=== PATIENT | female | born 1945 | race Caucasian/White ===

== ENCOUNTER 2017-03-25 14:46 | Emergency (ER) | payer MEDICARE ==
[2017-03-25] MEDS ORDERED: Sodium Chloride 0.9% 10 ML Syringe FLUSH PRN (15:12)
[2017-03-25] MEDS ORDERED: Metoprolol Tartrate 50 MG Tab PO ONE (15:13)
--- NOTE | 2017-03-25 15:18 | EDM.PDOC ---
ED HPI GENERAL MEDICAL PROBLEM - General Chief Complaint: Cardiovascular Problem Stated Complaint: CHEST DISCOMFORT/FLUTTERS Time Seen by Provider: 03/25/17 15:05 Source of Information: Reports: Patient, Family History Limitations: Reports: Other (no old records) - History of Present Illness INITIAL COMMENTS - FREE TEXT/NARRATIVE: 71 yo female weekender from [facility] with no significant pHx presents with her internal medicine doctor for evaluation of heart fluttering that began yesterday. She is not aware of this in the past. At home per her the rhythm seemed irregularly irregular. No chest pain, SOB, or nausea. Last BP check about a yr ago and was normal then. No recent med additions or subtractions. Her father had an [place] and a CVA in his early 60's. Took an aspirin tablet at home today. Onset Date: 03/24/17 Duration: Hour(s):, Intermittent, Waxing/Waning Location: Reports: Chest Quality: Reports: Other (no pain) Severity: Moderate Improves with: Reports: None Worsens with: Reports: None Context: Reports: Other (unknown) Associated Symptoms: Reports: No Other Symptoms Treatments JANITORIAL ASSISTANT: Reports: Other (see below) (none) - Related Data Allergies Allergy/AdvReac Type Severity Reaction Status Date / Time bee venom protein (honey bee) Allergy Rash Verified 03/25/17 15:10 latex Allergy Hives Verified 03/25/17 15:10 nickel Allergy Rash Verified 03/25/17 15:10 Home Meds: Home Meds Aspirin [Halfprin] 81 mg PO DAILY 03/25/17 [History] Rosuvastatin [Crestor] 10 mg PO DAILY 03/25/17 [History] ED ROS GENERAL - Review of Systems Review Of Systems: See Below Constitutional: Reports: No Symptoms HEENT: Reports: No Symptoms Respiratory: Reports: No Symptoms Cardiovascular: Reports: Palpitations. Denies: Chest Pain, Blood Pressure Problem (unaware), Dyspnea on Exertion, Edema, Lightheadedness, Orthopnea, Syncope Endocrine: Reports: No Symptoms GI/Abdominal: Reports: No Symptoms : Reports: No Symptoms Musculoskeletal: Reports: No Symptoms Skin: Reports: No Symptoms Neurological: Reports: No Symptoms Psychiatric: Reports: No Symptoms ED EXAM, GENERAL - Physical Exam Exam: See Below Exam Limited By: No Limitations General Appearance: Alert, WD/WN, No Apparent Distress Eye Exam: Bilateral Eye: Normal Inspection Ears: Normal External Exam, Normal Canal, Hearing Grossly Normal, Normal TMs Ear Exam: Bilateral Ear: Auricle Normal, Canal Normal, TM normal Nose: Normal Inspection, Normal Mucosa, No Blood Throat/Mouth: Normal Inspection, Normal Lips, Normal Oropharynx, Normal Voice, No Airway Compromise Head: Atraumatic, Normocephalic Neck: Normal Inspection, Supple, Non-Tender Respiratory/Chest: No Respiratory Distress, Lungs Clear, Normal Breath Sounds, No Accessory Muscle Use, Chest Non-Tender Cardiovascular: No Edema, Irregularly Irregular GI/Abdominal: Normal Bowel Sounds, Soft, Non-Tender Extremities: Normal Inspection, Normal Range of Motion, Non-Tender Neurological: Alert, Oriented, CN II-XII Intact, Normal Cognition, No Motor/ Sensory Deficits Psychiatric: Normal Affect, Normal Mood Skin Exam: Warm, Dry, Intact, Normal Color, No Rash EKG INTERPRETATION EKG Date: 03/25/17 Time: 14:45 Rhythm: NSR Rate (Beats/Min): 89 [place]: Normal P-Wave: Present QRS: Normal ST-T: Depressed (V4-V6 ST depression.) QT: Normal Comparison: NA - No Prior EKG EKG Interpretation Comments: No acute changes. environmental monitoring specialist shows PAC's and PVC's. EKG repeated after Metoprolol 50 mg po-ST depression in V4-V6 now resolved. Course - Vital Signs Last Recorded V/S: Last Vital Signs Temp 37.4 C 03/25/17 15:06 Pulse 79 03/25/17 16:52 Resp 13 03/25/17 16:52 BP 171/75 H 03/25/17 16:52 Pulse Ox 98 03/25/17 16:52 - Orders/Labs/Meds Orders: Active Orders 24 hr Category Date Time Status Cardiac Monitoring [RC] .As Directed Care 03/25/17 15:06 Active EKG Documentation Completion [RC] ASDIRECTED Care 03/25/17 15:06 Active EKG Documentation Completion [RC] ASDIRECTED Care 03/25/17 16:39 Active Oxygen Therapy Adult [Oxygen Therapy, ED] [RC] Care 03/25/17 15:24 Active ASDIRECTED Chest 1V Frontal [CR] Stat Exams 03/25/17 16:09 Taken TSH ULTRASENSITIVE [CHEM] Stat Lab 03/25/17 17:08 Ordered Sodium Chloride 0.9% [Saline Flush] Med 03/25/17 15:12 Active 10 ml FLUSH ASDIRECTED PRN Saline Lock Insert [OM.PC] Routine Oth 03/25/17 15:12 Ordered EKG 12 Lead [EK] Routine Ther 03/25/17 15:06 Ordered EKG 12 Lead [EK] Routine Ther 03/25/17 16:39 Ordered Medication Orders Sodium Chloride (Saline Flush) 10 ml FLUSH ASDIRECTED PRN PRN Reason: Keep Vein Open Last Admin: 03/25/17 15:39 Dose: 10 ml Labs: Laboratory Tests 03/25/17 03/25/17 Range/Units 15:24 15:24 WBC 8.0 (4.5-11.0) K/uL RBC 4.31 (3.30-5.50) M/uL Hgb 13.3 (12.0-15.0) g/dL Hct 40.3 (36.0-48.0) % MCV 94 (80-98) fL MCH 31 (27-31) pg MCHC 33 (32-36) % Plt Count 144 L (150-400) K/uL Sodium 138 L (140-148) mmol/L Potassium 3.8 (3.6-5.2) mmol/L Chloride 101 (100-108) mmol/L Carbon Dioxide 26 (21-32) mmol/L Anion Gap 14.8 H (5.0-14.0) mmol/L BUN 21 H (7-18) mg/dL Creatinine 1.0 (0.6-1.0) mg/dL Est Cr Clr Drug Dosing 45.85 mL/min Estimated GFR (MDRD) 55 L (>60) Glucose 151 H (74-106) mg/dL Calcium 9.2 (8.5-10.1) mg/dL Magnesium 1.8 (1.8-2.4) mg/dL Troponin I < 0.017 (0.000-0.056) ng/mL Meds: Medications Generic Name Dose Route Start Last Admin Trade Name Freq PRN Reason Stop Dose Admin Sodium Chloride 10 ml 03/25/17 15:12 03/25/17 15:39 Saline Flush FLUSH 10 ml ASDIRECTED PRN Administration Keep Vein Open Discontinued Medications Generic Name Dose Route Start Last Admin Trade Name Freq PRN Reason Stop Dose Admin Metoprolol Tartrate 50 mg 03/25/17 15:13 03/25/17 15:32 Lopressor PO 03/25/17 15:14 50 mg ONETIME ONE Administration - Radiology Interpretation Free Text/Narrative:: CXR negative Departure - Departure Time of Disposition: 17:15 Disposition: Home, Self-Care 01 Condition: Fair Clinical Impression: PVC (premature ventricular contraction) HTN (hypertension) Qualifiers: Hypertension type: essential hypertension Qualified Code(s): I10 - Essential ( primary) hypertension Referrals: PCP,None [Primary Care Provider] - Forms: ED Department Discharge - My Orders Last 24 Hours: My Active Orders 03/25/17 15:06 Cardiac Monitoring [RC] .As Directed EKG Documentation Completion [RC] ASDIRECTED EKG 12 Lead [EK] Routine 03/25/17 15:12 Sodium Chloride 0.9% [Saline Flush] 10 ml FLUSH ASDIRECTED PRN Saline Lock Insert [OM.PC] Routine 03/25/17 15:24 Oxygen Therapy Adult [Oxygen Therapy, ED] [RC] ASDIRECTED 03/25/17 16:09 Chest 1V Frontal [CR] Stat 03/25/17 16:39 EKG Documentation Completion [RC] ASDIRECTED EKG 12 Lead [EK] Routine 03/25/17 17:08 TSH ULTRASENSITIVE [CHEM] Stat - Assessment/Plan Last 24 Hours: My Active Orders 03/25/17 15:06 Cardiac Monitoring [RC] .As Directed EKG Documentation Completion [RC] ASDIRECTED EKG 12 Lead [EK] Routine 03/25/17 15:12 Sodium Chloride 0.9% [Saline Flush] 10 ml FLUSH ASDIRECTED PRN Saline Lock Insert [OM.PC] Routine 03/25/17 15:24 Oxygen Therapy Adult [Oxygen Therapy, ED] [RC] ASDIRECTED 03/25/17 16:09 Chest 1V Frontal [CR] Stat 03/25/17 16:39 EKG Documentation Completion [RC] ASDIRECTED EKG 12 Lead [EK] Routine 03/25/17 17:08 TSH ULTRASENSITIVE [CHEM] Stat
--- NOTE | 2017-03-27 10:39 | CR ---
Chest 1V Frontal FINDINGS: The heart and vascular structures are normal in appearance. No infiltrates or effusions are demonstrated. The skeletal structures are unremarkable. IMPRESSION: Negative exam.
== END 2017-03-25 17:56 | disposition home or self-care (01) ==
LOC: JP.ED 14:46
DX: I49.3 Ventricular premature depolarization (principal); I10 Essential (primary) hypertension; Z91.040 Latex allergy status; Z91.048 Other nonmedicinal substance allergy status; Z91.030 Bee allergy status; Z79.82 Long term (current) use of aspirin; Z79.899 Other long term (current) drug therapy
CPT/HCPCS: 36415; 71045; 80048; 83735; 84443; 84484; 85027; 93005; 99284; A9270; J7050